=== PATIENT | female | born 1955 | race Caucasian/White ===

== ENCOUNTER 2021-10-14 09:30 | Outpatient (CLI) | payer OTHER, SELFPAY ==
--- NOTE | 2021-10-14 09:40 | MM_ITS ---
WS: [id number] Exam: [place] [id number] Date/Time of Exam: 10/14/2021 9:43 AM Reason For Exam: SCREENING VIEWS: MLO and CC views both breasts. 3D digital tomosynthesis is also included in this exam. Comparison made with prior exam of 02/15/2002, 01/22/2014, 03/25/2016,. Findings: There was no sign of mass, architectural distortion or suspicious calcification in either breast. Sc attered fibroglandular densities MM/[place] [id number] Impression: BI-RADS: 2-Benign FOLLOW-UP: 1 Year Follow-up This mammogram was also analyzed by the Computer Aided Detection System R2 [employer]ag [employer].
== END 2021-10-14 09:31 | disposition home or self-care (01) ==
PROVIDERS: Visit Provider Nurse Practitioner
DX: Z12.31 Encounter for screening mammogram for malignant neoplasm of breast (principal)
CPT/HCPCS: 77063; 77067

== ENCOUNTER → 2022-08-18 10:55 | Outpatient (BNVA) | payer OTHER, SELFPAY | PROVIDERS: Visit Provider Family Medicine | DX: I10 Essential (primary) hypertension (principal); Z76.89 Persons encountering health services in other specified circumstances; S46.911A Strain of unspecified muscle, fascia and tendon at shoulder and upper arm level, right arm, initial encounter; S49.91XA Unspecified injury of right shoulder and upper arm, initial encounter; M25.561 Pain in right knee; X58.XXXA Exposure to other specified factors, initial encounter | CPT/HCPCS: 80053; 80061; 85025 ==

== ENCOUNTER 2023-03-02 09:19 | Outpatient (CLI) | payer OTHER, MEDICAID, SELFPAY ==
--- NOTE | 2023-03-02 10:00 | CT_ITS ---
WS: [id number] LDCT LUNG CANCER SCREENING TECHNIQUE: Noncontrast CT of the chest with coronal and sagittal reformatted images. CLINICAL INFORMATION: Lung Cancer Screening COMPARISON: None. DLP: 52.79 mGy.cm DIvol: Mean CTDIvol: 0.90 (mGy) All CT scans at [facility] use at least one of these dose optimization techniques: automat ed exposure control; mA and/or kV adjustment per patient size (includes targeted exams where dose is matched to clinical indication); or iterative reconstruction. FINDINGS: Calcified nodule RIGHT middle lobe measuring 5 mm. Few additional scattered tiny subpleural pulmonary nodules. No other suspicious pulmonary parenchymal opacities. Normal caliber thoracic aorta. No mediastinal or hilar lymphadenopathy. No axillary lymphadenopathy. Splenic granulomas. Adrenal glands are normal. Mild thoracic curve. Mild thoracic kyphosis. IMPRESSION: CT/CT lung screening [id number] LUNG-RADS: 2-Benign Appearance or Behavior FOLLOW UP: 12 Month: Continue annual screening with LDCT
== END 2023-03-02 09:20 | disposition home or self-care (01) ==
PROVIDERS: PCP Family Medicine; Visit Provider Family Medicine
DX: Z12.2 Encounter for screening for malignant neoplasm of respiratory organs (principal); F17.219 Nicotine dependence, cigarettes, with unspecified nicotine-induced disorders
CPT/HCPCS: 71271

== ENCOUNTER → 2023-12-26 09:16 | Outpatient (BNVA) | payer MEDICARE, MEDICAID, SELFPAY | PROVIDERS: PCP Family Medicine; Visit Provider Nurse Practitioner Family | DX: I10 Essential (primary) hypertension (principal); R19.00 Intra-abdominal and pelvic swelling, mass and lump, unspecified site | CPT/HCPCS: 80053; 80061; 84443; 85025 ==

== ENCOUNTER 2024-02-14 08:39 | Outpatient (CLI) | payer MEDICARE, MEDICAID, SELFPAY ==
--- NOTE | 2024-02-14 08:45 | USR_ITS ---
PROCEDURE INFORMATION: Exam: US Abdomen Complete Exam date and time: 02/14/2024 8:58 AM Age: 68 years old Clinical indication: Abdominal pain; Generalized; Additional info: R19.00 - intra-abdominal and pelvic swelling, mass and killian. . . TECHNIQUE: Imaging protocol: Real-time ultrasound of the abdomen with image documentation. Complete exam. COMPARISON: CT lung screening [id number] 03/02/2023 9:57 AM FINDINGS: Liver: Normal. No mass. Gallbladder: Normal. No gallstones. There is no gallbladder wall thickening. Biliary ducts: Normal. No stones. No dilation. Pancreas: Visualized pancreas is unremarkable. Right kidney: Normal. No mass. No hydronephrosis. Left kidney: Normal. No mass. No hydronephrosis. Spleen: Multiple splenic granulomas are seen. Soft tissues: Small fat containing umbilical hernia with a fascial defect of a proximally 1.4 cm. Suggestion of there is short-segment loop of small bowel within the hernia sac. Aorta: Normal. No aneurysm. Inferior vena cava: Normal. US/US abdomen complete* [id number] IMPRESSION: 1. Umbilical hernia with suggestion of short segment loop of small bowel within the hernia sac. Loop does not appear to be dilated, however no peristalsis is noted. Consider cross-sectional evaluation for further assessment. 2. Remainder of the examination without acute finding.
== END 2024-02-14 08:40 | disposition home or self-care (01) ==
LOC: RAD 08:41
PROVIDERS: PCP Nurse Practitioner Family; Visit Provider Nurse Practitioner Family
DX: K42.0 Umbilical hernia with obstruction, without gangrene (principal)
CPT/HCPCS: 76700

== ENCOUNTER 2024-02-27 15:48 | Outpatient (CLI) | payer MEDICARE, MEDICAID, SELFPAY ==
[2024-02-27] MEDS: iohexol 350 mg/mL 500 mL Btl (per mL) PO (16:06)
--- NOTE | 2024-02-27 17:00 | CT_ITS ---
WS: [id number] CT ABDOMEN AND PELVIS WITH CONTRAST HISTORY: R19.00 - Intra-abdominal and pelvic swelling, mass, question hernia. TECHNIQUE: Imaging performed of the abdomen and pelvis with IV contrast. Single phase imaging of the abdomen. Coronal and sagittal reformats are submitted. All CT scans at [facility] use at [address] one of these dose optimization techniques: automated exposure control; mA and/or kV adjustment per patient size (includes targeted exams where dose is matched to clinical indication); or iterative re construction. IV CONTRAST: Omnipaque 350; 100 mL IV. Oral contrast: Yes. DLP: 407.63 mGy.cm COMPARISON: 02/14/2024 ultrasound Lower thorax: Lung bases are clear. Heart is normal size. No hiatal hernia. Liver/biliary system: Normal size with no intrahepatic dilatation. Gallbladder: Normal. No gallstones or wall thickening. No pericholecystic fluid. Pancreas: Normal size pancreas and pancreatic duct. No adjacent inflammation. Spleen: Numerous scattered granulomata. Adrenal glands: Normal. Right kidney: Normal. Left kidney: Normal. Aorta: Mild atherosclerosis with no aneurysm. Normal mesenteric arteries. Lymphadenopathy: None. Free fluid: None. GI tract: Stomach is well distended. No small bowel obstruction or colon obstruction. Normal appendix . Mild diffuse constipation. No significant diverticular disease. Abdominal wall: Very small umbilical hernia contains fat only measuring 11 mm. There is an additional supraumbilical hernia containing omental fat only measuring 11 mm. Pelvis: No free fluid or adenopathy within the pelvis. Small caliber uterus as expected. No adnexal m asses. Bones: S-shaped curvature lumbar spine with advanced degenerative disc disease. CT/CT abdomen pelvis w con* [id number] IMPRESSION: 1. No acute abdominal or pelvic abnormalities are identified. 2. Umbilical and supraumbilical midline abdominal wall hernias containing omen rolo fat only. 3. No GI tract obstruction. 4. No ascites or adenopathy. 5. No pelvic mass.
[2024-02-27 17:09] LABS: Blood Urea Nitrogen 14 mg/dL (8-23)
[2024-02-27] MEDS: iohexol 350 mg/mL 500 mL Btl (per mL) IV (17:15)
== END 2024-02-27 15:49 | disposition home or self-care (01) ==
LOC: RAD 15:49
PROVIDERS: PCP Nurse Practitioner Family; Visit Provider Nurse Practitioner Family
DX: R19.00 Intra-abdominal and pelvic swelling, mass and lump, unspecified site (principal); F17.200 Nicotine dependence, unspecified, uncomplicated; K42.9 Umbilical hernia without obstruction or gangrene
CPT/HCPCS: 74177; 82565; 84520

== ENCOUNTER → 2024-03-04 09:20 | Outpatient (BNVA) | payer MEDICARE, MEDICAID, SELFPAY | PROVIDERS: PCP Nurse Practitioner Family; Visit Provider Surgery | DX: K42.9 Umbilical hernia without obstruction or gangrene; K43.9 Ventral hernia without obstruction or gangrene | CPT/HCPCS: 99204 ==

== ENCOUNTER 2024-03-19 07:54 | Day surgery (SDC) | payer MEDICARE, MEDICAID, SELFPAY ==
[2024-03-19] VITALS (16 sets, daily range): BP systolic 134–176; BP diastolic 72–90; PULSE 65–98; RESP 13–33; TEMP 36.2–36.3; O2SAT 92–99; BMI 25.8
[2024-03-19] MEDS: sodium chloride 0.9% 1,000 ML 30 ML IV (08:34)
[2024-03-19] MEDS: scopolamine 1.5 Patch 1 PATCH TRANSDERMA (09:03)
--- NOTE | 2024-03-19 09:15 | P.HPUD_ITS ---
Surgery/Procedure H&P Update DATE OF PROCEDURE: March 19, 2024 DATE H&P PERFORMED: 03/04/24 H&P UPDATE INFORMATION: I have reviewed H&P completed within last 30 days, I have examined patient prior to procedure and No changes to prior documentation PLANNED PROCEDURE: Operation Date: 03/19/24 10:10 Proposed Procedures p Laparoscopic Ventral Hernia Repair and lap umbilical hernia repair with mesh 4 [id number] K64.9(Not Applicable) - Cristhian Cat DO
[2024-03-19] MEDS: ceFAZolin 2,000 mg SDV 2000 MG IVP (10:34)
[2024-03-19] MEDS: lidocaine-epi 2% PF 1:200,000 20 mL SDV XX (11:22)
--- NOTE | 2024-03-19 11:30 | PM.OP ---
Operative Report Date of procedure: March 19, 2024 Pre-op diagnosis: Umbilical hernia Second ventral hernia over epigastrium Post-op diagnosis: same Procedure done: Laparoscopic repair of umbilical hernia with mesh Laparoscopic repair of ventral hernia with mesh Implants: 11 cm round Ventralight mesh x 2 Specimens removed/disposition: Hernia sacs x 2 Surgeon: Cristhian Cat DO Anesthesia: General and Local Estimated blood loss (mL): 5 Complications: None apparent Brief History: This is a very pleasant 68-year-old female presented my office with 2 separate ventral hernias, one at the umbilicus and one over the epigastrium. She desired repair. Laparoscopic repair with mesh was indicated. The risks and benefits were explained and documented. Procedure: Patient was wheeled into the operative room and placed on the OR table in a supine position. Abdomen was inspected prepped and draped in usual sterile fashion. Time-out was performed and all present were in agreement. A 15 blade scalp was used to make a 5 millimeter incision left upper quadrant. A Veress needle was placed into the incision and intra-abdominal insufflation was brought to 15 millimeters of mercury. A 12 millimeter trocar was placed into the left lower quadrant. 2 separate hernias were identified. There was a 1.5 cm umbilical hernia containing periumbilical fat and a 1.5 cm hernia in the epigastrium containing omental fat and falciform ligament. The energy but device was then used to cut out the hernia sacs. An 11 cm Ventralight mesh was placed into the abdomen and brought up through the umbilicus using an the Thanh-Phillip. The mesh was then tacked in place in a double crown fashion. The skeleton of the mesh was removed via the left lower quadrant. An 11 cm Ventralight mesh was placed into the abdomen and brought up through the center of the ventral hernia over the epigastrium using an the Thanh-Phillip. The mesh was then tacked in place in a double crown fashion. The skeleton of the mesh was removed via the left lower quadrant. The hernia sacs were then removed from the abdomen via the left lower quadrant. The left lower quadrant port site was closed with an 0 Vicryl suture in a Thanh-Phillip in a [id number] fashion. Incisions were closed with 4 O Vicryl in a subcuticular interrupted fashion. Skin glue was applied. A dressing that included cotton balls and a Tegaderm was placed over the umbilicus. Patient tolerated the procedure well.
[2024-03-19] MEDS: acetaminophen 1,000 MG/100 ML PIGGYBACK 400 MG IV (11:53)
[2024-03-19] MEDS: HYDROmorphone 1 mg/mL INJ 1 mL 0.5 MG IVP ×3 (12:00→12:18)
--- NOTE | 2024-03-19 12:04 | PC.NURSE ---
1200 - Per SIMEON Alva ok to start with Dilaudid 0.5
[2024-03-19] MEDS: ketorolac 30 mg/mL INJ 15 MG IVP (12:05)
[2024-03-19] MEDS: ondansetron 2 mg/ML SDV 2 mL 4 MG IVP (13:16)
--- NOTE | 2024-03-19 13:50 | ANE.PACU2 ---
Inpatient post-anesthesia follow up: Airway intact: Yes Vital signs: Temperature 97.2 F Pulse Rate 76 Respiratory Rate 18 Blood Pressure 176/88 Pulse Oximetry 96 Oxygen Delivery Me thod Room Air Oxygen Flow Rate Fraction of Inspir ed Oxygen Hydration adequate: Yes Nausea and vomiting: No Pain level: 1 Mental status: Baseline
--- NOTE | 2024-03-19 14:00 | ANES.PREANE2 ---
Pre-Anesthetic Assessment Height/Weight: Height 1.73 m Weight 77.111 kg Temp Pulse Resp BP Pulse Ox O2 Del Method 97.2 F L 76 18 176/88 96 Room Air 03/19/24 13:15 03/19/24 13:15 03/19/24 13:15 03/19/24 13:15 03/19/24 13:15 03/19/24 13:15 Operation Date: 03/19/24 10:10 Proposed Procedures p Laparoscopic Ventral Hernia Repair and lap umbilical hernia repair with mesh [id number] K64.9(Not Applicable) - Cristhian Cat DO Familial anesthetic complications: PONV Last intake: Intake Last Liquid Date 03/18/24 Last Liquid Time 21:30 Last Solid Date 03/18/24 Last Solid Time 21:30 Exam alert, oriented x 3, clear to auscultation bilaterally and regular rate & rhythm Airway Mallampati: Class II Dentition: partials CV/HEM Hypertension Anesthetic Plan ASA status: 2 Anesthesia: General Risk of > 500 ml blood loss (7ml/kg in children): No Medications/Allergies Home Medications Medication Instructions Recorded Confirmed Last Taken Type albuterol sulfate 90 mcg/actuation 2 puff inhalation 6XD PRN 08/25/23 03/18/24 Unknown Rx aerosol inhaler (Ventolin HFA) shortness of breath or wheezing #8.5 grams duloxetine 20 mg capsule,delayed 20 mg PO DAILY #90 caps 12/26/23 03/18/24 Unknown Rx release (Cymbalta) amlodipine 10 mg tablet 10 mg PO DAILY 03/18/24 03/18/24 Unknown History docusate sodium 100 mg capsule 100 mg PO BID #14 caps 03/19/24 Unknown Rx (Colace) hydrocodone 7.5 mg-acetaminophen 1 tab PO Q6H PRN pain #20 tabs 03/19/24 Unknown Rx 325 mg tablet polyethylene glycol 3350 17 17 g PO DAILY 7 days #119 grams 03/19/24 Unknown Rx gram/dose oral powder (Miralax) Allergies Allergy/AdvReac Type Severity Reaction Status Date / Time No Known Allergies Allergy Verified 01/04/24 15:18 Current Medications Generic Name Dose Route Start Last Admin Trade Name Freq PRN Reason Stop Dose Admin Hydromorphone HCl 0.5 mg 03/19/24 11:39 03/19/24 12:18 Hydromorphone 1 Mg/Ml Inj 1 Ml IVP 03/20/24 11:39 0.5 mg Q10M PRN Administration Pain level 7-10 PACU Phase I Sodium Chloride 1,000 mls @ 30 mls/hr 03/19/24 08:15 03/19/24 13:56 Sodium Chloride 0.9% IV 03/20/24 08:14 Infused .Q24H OLIVIER Infusion Ondansetron HCl 4 mg 03/19/24 11:39 03/19/24 13:16 Ondansetron 2 Mg/Ml Sdv 2 Ml IVP 4 mg Q15M PRN Administration Nausea/Vomiting PACU PHASE II Scopolamine 1 patch 03/19/24 09:15 03/19/24 09:03 Scopolamine 1.5 Patch TRANSDERMA 1 patch Q3D OLIVIER Administration PFSH Anesthesia Family History Father Cancer Lung disease Mother Diabetes Hypertension CAD (coronary artery disease) Denies family history of Clotting disorder Dementia Hyperlipidemia Psychiatric illness Chronic kidney disease (CKD) Suicide Family history of premature coronary artery disease Stroke Social History Smoking and tobacco/nicotine status: former use of tobacco/nicotine Alcohol intake: never Substance/Drug Use: never Adopted: No Caregiver/support person: No Lives independently: Yes service: No Do you think of yourself as: Straight/Heterosexual Current gender identity: Female Female Reproductive History Spontaneous abortions: No Data Anesthesia Cardiac Studies: No Data to Display
== END 2024-03-19 13:50 | disposition home or self-care (01) ==
PROVIDERS: PCP Nurse Practitioner Family; Visit Provider Surgery
PROC: 0WQF4ZZ Repair Abdominal Wall, Percutaneous Endoscopic Approach (ICD-10-PCS; CPT 49591; principal; 2024-03-19 10:10)
DX: K42.9 Umbilical hernia without obstruction or gangrene (principal); K43.9 Ventral hernia without obstruction or gangrene; I10 Essential (primary) hypertension; Z87.891 Personal history of nicotine dependence
CPT/HCPCS: 49591; 88302; C1781; J0131; J0690; J1171; J1885; J2405; J2704; J3010; J3490; J7030

== ENCOUNTER → 2024-04-01 09:22 | Outpatient (BNVA) | payer MEDICARE, OTHER, MEDICAID, SELFPAY | PROVIDERS: PCP Nurse Practitioner Family; Visit Provider Surgery | DX: Z98.890 Other specified postprocedural states (principal); Z87.19 Personal history of other diseases of the digestive system | CPT/HCPCS: 99024 ==

== ENCOUNTER → 2024-12-12 10:39 | Outpatient (BNVA) | payer MEDICARE, MEDICAID, SELFPAY | PROVIDERS: PCP Family Medicine; Visit Provider Family Medicine | DX: R05.9 Cough, unspecified (principal) | CPT/HCPCS: 71046 ==

== ENCOUNTER 2025-01-01 11:37 | Outpatient (CLI) | payer MEDICARE, MEDICAID, SELFPAY ==
--- NOTE | 2025-01-01 11:40 | MM_ITS ---
WS: [id number] BILATERAL 3D TOMOSYNTHESIS DIGITAL SCREENING MAMMOGRAPHY WITH CAD CLINICAL INFORMATION: Z12.39 - Encounter for other screening for malignant neop... HISTORY: Screening mammogram. No current complaints. COMPARISON: 2021 TECHNIQUE: Bilateral CC and MLO views. FINDINGS: Scattered fibroglandular densities bilaterally. No suspicious focal mass, asymmetry, calcifications, or architectural distortion. No evidence of malignancy. Vascular calcifications. MM/MM scr tomosynthesis [id number] IMPRESSION: DENSITY: There are scattered areas of fibroglandular density. BI-RADS: 2 - Benign. FOLLOW UP: 1 Year Follow-up Recommend return to annual screening mammography.
== END 2025-01-01 11:38 | disposition home or self-care (01) ==
PROVIDERS: PCP Family Medicine; Visit Provider Family Medicine
DX: Z12.31 Encounter for screening mammogram for malignant neoplasm of breast (principal); R92.323 Mammographic fibroglandular density, bilateral breasts; R92.1 Mammographic calcification found on diagnostic imaging of breast
CPT/HCPCS: 77063; 77067